=== PATIENT | male | born 1985 | race Caucasian/White ===

== ENCOUNTER 2017-05-14 23:02 | Emergency (ER) | payer OTHER ==
[2017-05-14 23:18] VITALS: RESP 16; TEMP 97.5; O2SAT 96
--- NOTE | 2017-05-15 00:16 | EDPHY ---
H & P Stated Complaint: rash HPI/ROS: HPI CHIEF COMPLAINT: Rash on chest and abdomen, pruritic HISTORY OF PRESENT ILLNESS: This patient very pleasant 32-year-old male he is otherwise healthy does not take any daily medications he presents emergency room with a blotchy erythematous pruritic rash throughout his chest and abdomen. States he knows this tonight. He denies any fever, denies recent illness. He can only think of 1 new exposure which is a new dog. It was rescue dog. He states it did have fleas and was recently treated. He denies any pain anywhere. Decided come the emergency room for evaluation as he noticed it tonight. Does not really bother him very mild itch. He reports that his and child do not have this. Denies any mucosal lesions. Denies recent travel. Denies sleeping on hotel beds or other people couches. Past Medical History: Denies medical history Past Surgical History: Denies surgical history Social History: Denies daily use drugs alcohol tobacco products. Family History: Noncontributory ROS REVIEW OF SYSTEMS: A comprehensive 10 point review of systems is otherwise negative aside from elements mentioned in the history of present illness. Exam Constitutional appears well nontoxic triage nursing summary reviewed, vital signs reviewed, awake/alert. Eyes normal conjunctivae and sclera, EOMI, PERRLA. HENT normal inspection, atraumatic, moist mucus membranes, no epistaxis, neck supple/ no meningismus, no raccoon eyes. Respiratory clear to auscultation bilaterally, normal breath sounds, no respiratory distress, no wheezing. Cardiovascular rate normal, regular rhythm, no murmur, no edema, distal pulses normal. Gastrointestinal soft, non-tender, no rebound, no guarding, normal bowel sounds, no distension, no pulsatile mass. Genitourinary no CVA tenderness. Musculoskeletal no midline vertebral tenderness, full range of motion, no calf swelling, no tenderness of extremities, no meningismus, good pulses, neurovascularly intact. Skin erythematous blotchy lesions that are raised, no particular purpura mainly on his chest and abdomen. They are blanchable. They do not appear to be vesicular. They are not weeping. They are not tender. They are mildly pruritic. Neurologic awake, alert and oriented x 3, AAOx3, moves all 4 extremities equally, motor intact, sensory intact, CN II-XII intact, normal cerebellar, normal vision, normal speech. Psychiatric normal mood/affect. Heme/Lymph/Immune no lymphadenopathy. Differential Diagnosis: Includes but is not limited to in a particular order contact dermatitis, pityriasis rosacea, flea bites. Medical Decision Making: Will give a dose of prednisone 60 mg and Benadryl 25 mg p.o.. This does not appear to be a infectious [place] rash. Recommend symptomatic treatment. I do recommend cases fleas from his dog that he washes everything in hot water. Watch his lesions closely. If they are getting worse he should return for re- evaluation. Source: Patient - Personal History Current Tetanus/Diphtheria Vaccine: Yes Current Tetanus Diphtheria and Acellular Pertussis (TDAP): Yes - Medical/Surgical History Hx Asthma: No Hx Chronic Respiratory Disease: No Hx Diabetes: No Hx Cardiac Disease: No Hx Renal Disease: No Hx Cirrhosis: No Hx Alcoholism: No Hx HIV/AIDS: No Hx Splenectomy or Spleen Trauma: No Other PMH: denies - Social History Smoking Status: Never smoked Constitutional: Initial Vital Signs Temperature (C) 36.4 C 05/14/17 23:15 Heart Rate 64 05/14/17 23:15 Respiratory Rate 16 05/14/17 23:15 Blood Pressure 149/108 H 05/14/17 23:15 O2 Sat (%) 96 05/14/17 23:15 O2 Delivery Mode Room Air Allergies/Adverse Reactions: bee stings Allergy (Uncoded 05/14/17 23:19) Home Medications: Medication Instructions Recorded diphenhydrAMINE [Benadryl 25 MG 25 mg PO BID #6 tab 05/15/17 (*)] predniSONE 60 mg PO DAILY #9 tab 05/15/17 Departure - Departure Disposition: Home, Routine, Self-Care Clinical Impression: Rash Condition: Good Instructions: Acute Rash (ED) Additional Instructions: 1. Please return emergency room if your rashes worse. Or if he develops a fever or you have any questions or concerns 2. Benadryl and prednisone for the next 3 days. Referrals: NONE *PRIMARY CARE P,. [Primary Care Provider] - As per Instructions Prescriptions: diphenhydrAMINE [Benadryl 25 MG (*)] 25 mg PO BID #6 tab predniSONE 60 mg PO DAILY #9 tab
[2017-05-15] MEDS ORDERED: predniSONE 20 MG TAB PO ONE (00:25)
[2017-05-15] MEDS ORDERED: diphenhydrAMINE 25 MG CAP PO ONE (00:25)
[2017-05-15 00:53] VITALS: BP 135/97; PULSE 71
== END 2017-05-15 00:53 | disposition home or self-care (01) ==
DX: R21 Rash and other nonspecific skin eruption (principal)
CPT/HCPCS: J7512